=== PATIENT | female | born 1940 | race Two or more races ===

== ENCOUNTER 2016-12-04 23:11 | Inpatient (IN) | payer OTHER ==
--- NOTE | ~2016-12-04 | EKG ---
PATIENT: PEARL KEMP UNIT #: [id number] Ventricular Rate: 109 BPM Atrial Rate: 117 BPM QRS Duration: 122 ms Q-T Interval: 416 ms QTC Calculation(Bezet): 560 ms Calculated R [place]: 95 degrees Calculated T [place]: -29 degrees Diagnosis Line: Atrial fibrillation with rapid ventricular Diagnosis Line: response Diagnosis Line: Right bundle branch block Diagnosis Line: T wave abnormality, consider inferolateral Diagnosis Line: ischemia or digitalis effect Diagnosis Line: Abnormal ECG Diagnosis Line: When compared with ECG of 06-DEC-2016 08:56, Diagnosis Line: (unconfirmed) Diagnosis Line: ST more depressed Anterior leads Diagnosis Line: Confirmed by ERNESTINA DE LA CRUZ MD ([id number]) on 12/07/2016 Diagnosis Line: 10:19:03 PM INTERPRETING MD: DOROTHY TUTTLE
--- NOTE | ~2016-12-04 | CR72 ---
[facility] A Service of [facility] RADIOLOGY TEXT RESULTS PATIENT: PEARL KEMP LOCATION: [address] : 38 UNIT #: [id number] AGE: [address]: Evelio Agosto MD SEX: F ORDER DR: [id number] [id number] [place], [place] [address] [id number] I MR#: [id number] Acc #: [id number] NAME: PEARL KEMP : 1940 SEX: F STUDY DATE/TIME: 12/06/2016 7:16 UNIT: [facility] ROOM: [facility] STUDY DESCRIPTION: CR Chest Single View Portable Attending Physician: Azul Fontaine M.D. Ordering Physician: Azul Fontaine M.D. Primary Care Physician: Primary Care Physician No MEDICAL IMAGING REPORT This report is preliminary unless electronic signature is present EXAM Portable chest INDICATIONS Respiratory distress. PROCEDURE Frontal view of the chest COMPARISON 12/05/2016 FINDINGS Improving aeration in the left upper lung zone. ET tube extends just into the left main bronchus. No visible pneumothorax. IMPRESSION 1. ET tube extends just into the left main bronchus. Suggest repositioning. 2. Improving opacity in the left upper lung zone. Persistent opacity in the wmt-rf-lllol left lung. Dictated by... Bassam Chacon M.D. THIS IS AN ELECTRONICALLY VERIFIED REPORT Bassam Chacon M.D. at 12/07/2016 9:42 AM TAJ/jordon TD: 12/06/2016 08:31 JOB #: [id number] MEDICAL IMAGING REPORT [facility] A Service [facility] RADIOLOGY TEXT RESULTS PATIENT: PEARL KEMP LOCATION: [address] : 38 UNIT #: [id number] AGE: [address]: Evelio Agosto MD SEX: F ORDER DR: Page 1 of 1 COPY
--- NOTE | ~2016-12-04 | CR72 ---
[facility] A Service of [facility] RADIOLOGY TEXT RESULTS PATIENT: PEARL KEMP LOCATION: [address] [address] : 38 UNIT #: [id number] AGE: [address]: Azul Fontaine MD SEX: F ORDER DR: [id number] [facility] [address] [place], [place] [address] [id number] I MR#: [id number] Acc #: [id number] NAME: PEARL KEMP : 1940 SEX: F STUDY DATE/TIME: 12/06/2016 8:34 UNIT: [facility] ROOM: [facility] STUDY DESCRIPTION: CR Chest Single View Portable Attending Physician: Azul Fontaine M.D. Ordering Physician: Azul Fontaine M.D. Primary Care Physician: Primary Care Physician No MEDICAL IMAGING REPORT This report is preliminary unless electronic signature is present EXAM Portable chest INDICATIONS Endotracheal tube position. COMPARISON Compared with earlier today. FINDINGS The ET tube has been slightly retracted. The tip is at the giana but oriented toward the left mainstem bronchus. Suggest further retraction about 3 cm. The exam is otherwise unchanged. IMPRESSION Endotracheal tube tip is still low and would suggest retraction about 3 cm. Dictated by... Yury Lema M.D. THIS IS AN ELECTRONICALLY VERIFIED REPORT Yury Lema M.D. at 12/06/2016 9:17 AM LUDY/jordon TD: 12/06/2016 09:05 JOB #: [id number] MEDICAL IMAGING REPORT Page 1 of 1 COPY
--- NOTE | ~2016-12-04 | CO ---
Unit #: [id number] #: [id number] Patient: PEARL KEMP [id number] [address] [address] [id number] I MR#: [id number] NAME: PEARL KEMP ROOM: [facility] Age: 76 Sex: F Admission Date: 12/05/2016 : 1940 Attending Physician: Azul Fontaine M.D. Primary Care Physician: No Primary Care Physician CONSULTATION REPORT REASON FOR CONSULTATION Respiratory failure. CHIEF COMPLAINT Shortness of breath. HISTORY OF PRESENT ILLNESS This 76-year-old female presented with the complaint of shortness of breath. The patient has a past medical history of COPD on home oxygen, hypertension, nonischemic cardiomyopathy, blind in right eye, lung nodule, amyloidosis, gout, history of emphysema, AFib. I am seeing the patient at beside, currently on BiPAP, not in any acute distress but oxygen saturation is low. The patient denies chest pain and also has been complaining of some hemoptysis. SOCIAL HISTORY The patient smoked one pack of cigarettes until 2010. No alcohol. FAMILY HISTORY None. ALLERGIES No known drug allergies. MEDICATION 1. Potassium. 2. Zyloprim. 3. Diltiazem. 4. Aspirin. 5. Eliquis. 6. Metoprolol. 7. Bumex. 8. Lipitor. 9. ProAir. 10. Atropine. 11. Eye drops. PHYSICAL EXAMINATION VITAL SIGNS: Temperature 90. Pulse 87. Respiration 12. Blood pressure 98/34. NEUROLOGIC: She is awake, alert, oriented. No neuro deficit. HEENT: PERRLA. NECK: Supple. CHEST: Bilateral air entry. Bilateral mild rhonchi. Unit #: [id number] #: [id number] Patient: PEARL KEMP GASTROINTESTINAL: Nontender. Soft. Bowel sounds positive. EXTREMITIES: No edema. DIAGNOSTIC STUDIES Labs and imaging have been reviewed. ASSESSMENT AND PLAN Acute hypoxic respiratory failure, acute exacerbation of CHF, acute exacerbation of COPD, acute bronchitis, pneumonia, likely aspiration, amyloidosis, hemoptysis, chronic anticoagulation. The plan is to continue the patient on BiPAP support, IV antibiotic, IV steroid, bronchodilator, GI and DVT prophylaxis, check procalcitonin level, noncontrast CT of the chest. Please see orders for detailed plan. Thank you very much for this consultation. The patient may need intubation. I discussed with the family at the bedside. Dictated by... Malcom Delgado TD: 12/05/2016 15:13 JOB #: [id number] CONSULTATION REPORT Page 1 of 1 X Eloina Kaye MD X CONSULTATION REPORT
--- NOTE | ~2016-12-04 | DS ---
Unit #: [id number] #: [id number] Patient: PEARL KEMP [id number] [address] [address] [id number] I MR#: [id number] NAME: PEARL KEMP ROOM: [facility] Age: 76 Sex: F Admission Date: 12/05/2016 : 1940 Discharge Date: 12/10/2016 Attending Physician: Evelio Agosto M.D. Primary Care Physician: No Primary Care Physician DISCHARGE SUMMARY DATE/TIME OF December 10, 2016 at [address] Aponte. PROCEDURES DONE Bronchoscopy. ADMITTING DIAGNOSIS Shortness of breath. FURTHER DIAGNOSES 1. Acute hypoxic respiratory failure requiring intubation. 2. Hemoptysis. 3. Congestive heart failure, acute on chronic systolic. 4. Permanent atrial fibrillation. 5. Pulmonary amyloidosis. HISTORY OF PRESENT ILLNESS Patient is a 76-year-old Yakut-speaking lady with multiple medical problems including history of diastolic heart failure, COPD, hypertension, nonischemic cardiomyopathy, pulmonary amyloidosis, gout, empyema, A fib on anticoagulation. Presented to the emergency room on the with the chief complaint of cough and shortness of breath. She was also complaining of throwing up blood. Patient was intubated. She was admitted in the ICU. She was seen by pulmonary and cardiology services. She did have sputum culture and bronchoscopy done, and she had a large mucus plug, which was removed. The sputum cultures came back positive for ESBL, and she is on antimicrobials. On the she started to spike fevers, high up to 105, 106. Dr. Aponte discussed with the family, explained to them poor outcome. I also spoke with the family at length. The patient's grandson, who is the power of collector of internal revenue, requested to withdraw the care, and he wanted to keep her comfort care. Around 1345 hours on December 10, 2016, unfortunately, she . Dictated by... Evelio Agosto M.D. PS/kenny Unit #: [id number] #: [id number] Patient: PEARL KEMP TD: 12/11/2016 14:26 JOB #: [id number] DISCHARGE SUMMARY Page 1 of 1 X X DISCHARGE SUMMARY
--- NOTE | ~2016-12-04 | CO ---
Unit #: [id number] #: [id number] Patient: PEARL KEMP [id number] [address] [facility] [place], [place] [address] [id number] I MR#: [id number] NAME: PEARL KEMP ROOM: [facility] Age: 76 Sex: F Admission Date: 12/05/2016 : 1940 Attending Physician: Evelio Agosto M.D. Primary Care Physician: No Primary Care Physician CONSULTATION REPORT INTRODUCTION This patient is a 76-year-old Swazi female followed by Dr. Jefferson in our office. She was admitted by [facility]. [facility] consulted Dr. Kaye. On admission he noticed that we had seen the patient in the hospital before and that she is followed by Dr. Jefferson in our office and he asked us to assume care. She was admitted with increased shortness of breath. She also had some hemoptysis. She apparently went to see her primary flight communications officer and was told to continue Eliquis. Shortness of breath worsened and she apparently presented to the emergency room here. Her chest x-ray showed increased markings in the lungs with silhouetting of the left hemidiaphragm. Multiple pulmonary nodules were noted. She was noted to be in respiratory failure and was placed on BiPAP. Arterial blood gasses revealed 7.40, pCO2 of 48, paO2 of 59 on 80% and BiPAP of 12.6. She worsened and became more hypoxemic requiring intubation on the . At that time chest x-ray showed complete opacification of left hemithorax. Follow-up x-ray yesterday showed some better aeration of the left upper lobe. A bronchoscopy was scheduled by Dr. Kaye and now we are asked to see the patient. Chest x-ray today reveals opacification of the lower half to third of the left hemithorax. The left upper lobe appears patent. She still has multiple pulmonary nodules. Arterial blood gasses revealed pH of 7.45, pCO2 of 48, PaO2 of 188 on 100%, rate of 24, tidal volume 400, PEEP of 10. Chemistries are fairly unremarkable. Procalcitonin was elevated at 2.92. Lactate was 1 on the , maximum of 1.6. She initially had been on Eliquis but that was discontinued. She has had no further hemoptysis. Her white blood cell count was 19,700 on admission, hematocrit was 37.2 and platelet count was normal. Influenza A and B are negative. Currently blood and sputum cultures are negative. She has been made DNR status. She remains on ventilator. PAST MEDICAL HISTORY Her past medical history is significant for COPD, chronic respiratory failure, some diastolic cardiac dysfunction, amyloidosis, hypertension, right bundle branch block, amyloidosis with pulmonary nodules, history of right eye blindness. PAST SURGICAL HISTORY Hysterectomy. SOCIAL HISTORY Reformed smoker, lives with daughter and grandson, quit smoking in 2010. FAMILY HISTORY Unit #: [id number] #: [id number] Patient: PEARL KEMP Negative for coronary artery disease. ALLERGIES None known. CURRENT MEDICATIONS Include digoxin, amiodarone, Bumex, Zyloprim, Cardizem CD, Lopressor, Atropisol, Pred Forte eye drops, some other eye drops, Timolol eye drops, Benadryl, Solu-Medrol, DuoNeb, hypertonic saline, Zosyn, fentanyl, norepinephrine. REVIEW OF SYSTEMS Not possible. PHYSICAL EXAMINATION GENERAL: Swazi female intubated orally #8 ET tube, sedated, on vent. VITAL SIGNS: Blood pressure is 113/57. Pulse 111. Respiratory rate 25. Temperature 101.8. HEENT: Normocephalic and atraumatic. Pupils equal, round and reactive. Sclerae anicteric. Nasal passages patent. Orally intubated. NECK: Supple. Trachea midline. No cervical or supraclavicular lymphadenopathy. LUNGS: Scattered rhonchi. CARDIAC: Irregularly irregular rhythm. ABDOMEN: Nontender, bowel sounds present, no hepatosplenomegaly. EXTREMITIES: Without clubbing, cyanosis or edema. NEUROLOGIC: Sedated, on vent. DIAGNOSTIC STUDIES LABORATORY: Studies personally reviewed as noted. IMPRESSION 1. Pneumonia with septic shock. 2. Mucous plug, better but still possibly mucous plug left lower lobe. 3. Acute and chronic hypoxemic respiratory failure. 4. Pulmonary amyloidosis. 5. Atrial fibrillation, rapid ventricular response. 6. Hemoptysis, probably secondary to pneumonia and Eliquis, currently resolved off Eliquis. 7. Fever. 8. DNR status. PLAN Will add vancomycin to Zosyn to cover better for Gram-positive organisms. Will continue to treat COPD with inhaled bronchodilators, low-dose steroids and provide pulmonary toilet and hygiene. Will proceed with bronchoscopy, have talked with the son on phone and informed consent has been given. Will make further recommendations pending this. Dictated by... Malcom Johnson/kassidy Unit #: [id number] #: [id number] Patient: PEARL KEMP TD: 12/07/2016 22:34 JOB #: [id number] CONSULTATION REPORT Page 1 of 1 X Basim Aponte MD X CONSULTATION REPORT
--- NOTE | ~2016-12-04 | CR72 ---
[facility] A Service of [facility] RADIOLOGY TEXT RESULTS PATIENT: PEARL KEMP LOCATION: [address] : 38 UNIT #: [id number] AGE: [address]: Evelio Agosto MD SEX: F ORDER DR: [id number] [facility] [address] [facility]. [place], [place] [address] [id number] I MR#: [id number] Acc #: [id number] NAME: PEARL KEMP : 1940 SEX: F STUDY DATE/TIME: 12/09/2016 2:50 UNIT: [facility] ROOM: [facility] STUDY DESCRIPTION: CR Chest Single View Portable Attending Physician: Evelio Agosto M.D. Ordering Physician: Basim Aponte M.D. Primary Care Physician: Primary Care Physician No MEDICAL IMAGING REPORT This report is preliminary unless electronic signature is present EXAM AP portable chest 12/09/2016. HISTORY Respiratory failure. Follow up cardiopulmonary status. TECHNIQUE AP portable chest x-ray. FINDINGS The examination shows no change since yesterday. Marked cardiomegaly with probable mild vascular congestion and infiltrate or atelectasis in the left lung, base behind the heart. Low lung volumes. Endotracheal tube, right IJ central line and Dobbhoff feeding tube remain in good position. IMPRESSION Stable portable chest radiograph, unchanged since yesterday. Support equipment in good position. Dictated by... Apolinar Vazquez M.D. THIS IS AN ELECTRONICALLY VERIFIED REPORT Apolinar Vazquez M.D. at 12/09/2016 5:59 AM SAVANNAW/benito TD: 12/09/2016 03:22 JOB #: [id number] MEDICAL IMAGING REPORT Page 1 of 1 COPY
--- NOTE | ~2016-12-04 | CO ---
Unit #: [id number] #: [id number] Patient: PEARL KEMP [id number] [facility]. [place], [place] [address] [id number] I MR#: [id number] NAME: PEARL KEMP ROOM: [facility] Age: 76 Sex: F Admission Date: 12/05/2016 : 1940 Attending Physician: Azul Fontaine M.D. Consultation Date: 12/05/2016 CONSULTATION REPORT REASON FOR CONSULTATION Congestive heart failure. HISTORY OF PRESENT ILLNESS This is a 76-year-old Emirati female, who is known to the cardiovascular associates and supervisor/port director at [employer], who has a history of diastolic heart failure and permanent atrial fibrillation where she is on anticoagulation with Eliquis. She had a cardiac catheterization in 2010 that showed angiographically normal coronaries. The patient presents to the emergency room with a complaint of shortness of breath and hemoptysis. She developed hemoptysis a few days ago and went to see her primary supervisor/port director 2 days ago. Her supervisor/port director told her to continue Eliquis. Yesterday, she developed shortness of breath where she could not breathe. For this reason, she came to the emergency room for evaluation. She does have a history of pulmonary amyloidosis and COPD, where she is on home oxygen. She is also noted to have pulmonary nodules. She was placed on BiPAP and is currently in the intensive care unit. There was elevation of BNP of 333. Chest x-ray showed mild vascular congestion. There is also noted multiple pulmonary nodules and masses where malignancy is questioned. At the time in the examination, the patient had a large amount of bright red blood with clots. She is in atrial fibrillation, but rate is controlled. She reports no leg edema. Denies paroxysmal nocturnal dyspnea or orthopnea. PAST MEDICAL HISTORY 1. 2D echocardiogram, 09/12/2014 shows ejection fraction of greater than 55% with impaired left ventricle relaxation. There is moderate mitral regurgitation and moderate tricuspid regurgitation and mild aortic regurgitation. 2. Cardiac catheterization in [address] Acuña at [facility] showed normal coronaries. Pulmonary artery pressure is 27/8 with mean of 16. Sczc-lr-fxtoqoay aortic regurgitation. 3. Permanent atrial fibrillation, on Eliquis. 4. Hypertension. 5. Diastolic heart failure. 6. Right bundle-branch block. 7. COPD, on home oxygen. 8. Pulmonary nodules. 9. Pulmonary amyloidosis. 10. Right eye blindness. 11. Former smoker. Unit #: [id number] #: [id number] Patient: PEARL KEMP PAST SURGICAL HISTORY Hysterectomy. SOCIAL HISTORY The patient lives with her daughter and grandson. She quit smoking in 2010. She originates from [place]. There is no illicit drug or alcohol use. FAMILY HISTORY Negative for coronary artery disease. ALLERGIES No known drug allergies. HOME MEDICATIONS Potassium chloride 20 mEq daily, allopurinol 100 mg daily, diltiazem 240 mg daily, aspirin 81 mg daily, Eliquis 2.5 mg b.i.d., metoprolol tartrate 25 mg t.i.d., Bumex 2 mg b.i.d., Lipitor no dose available, ProAir HFA 1 inhalation q.6 hours p.r.n., atropine 0.1% eyedrop right eye daily, Pred Forte 1 drop right eye daily, Benadryl 12.5 mg q.i.d., brimonidine tartrate 0.2% 1 drop right eye daily, Timoptic 0.5% 1 drop right eye daily. REVIEW OF SYSTEMS 10-point review of system is negative except details stated in HPI. PHYSICAL EXAMINATION VITAL SIGNS: Blood pressure 115/57, heart rate 87, temperature 97.8. BMI is 27. GENERAL: This is a 76-year-old, well-developed, female, who is in no acute respiratory distress. NEUROLOGIC: She is awake, alert, and oriented. There are no focal weaknesses. NECK: Trachea is midline. No thyromegaly or lymphadenopathy. No jugular venous distention. HEART: S1, S2. Heart sounds are normal with soft systolic murmur heard best on the right sternal border. No rubs or clicks. Irregularly irregular rhythm. LUNGS: With diminished breath sounds in both lungs without rales, rhonchi, or wheezing. ABDOMEN: Soft and nontender with bowel sounds are present. EXTREMITIES: With trace lower extremity edema. DIAGNOSTIC STUDIES LABORATORY RESULTS: Hemoglobin 11.4, hematocrit 36.6, platelet count 199, white count 14.9. Sodium 137, potassium 4.3, BUN 24, creatinine 0.9, glucose 126. BNP 335. IMAGING STUDIES: Chest x-ray shows marked cardiomegaly. There is mild vascular congestion. Multiple pulmonary nodules and masses, questionable malignancy. CARDIOVASCULAR STUDIES: EKG shows atrial fibrillation with a rate of 97 beats per minute with right bundle-branch block. IMPRESSION 1. Acute on chronic hypercapnic/hypoxic respiratory failure. 2. Pulmonary amyloidosis. 3. Chronic obstructive pulmonary disease. Unit #: [id number] #: [id number] Patient: EFRAIN BLAIR,PEARL MCMAHON 4. Pulmonary nodules. 5. Mild acute on chronic diastolic heart failure. 6. Hemoptysis. 7. Permanent atrial fibrillation. 8. Chronic right bundle-branch block. 9. Normal coronaries per cardiac catheterization in 2010. PLAN 1. Cardiology was consulted for congestive heart failure. She is currently on IV Bumex. BNP mildly elevated. 2. Echocardiogram is pending for left ventricular systolic function. Because of hemoptysis, we will discontinue anticoagulation. 3. We will follow the patient with you. Thank you for allowing us to assist in this patient's care. Dictated by... Eugene Cristina A.P.R.N. for [employer]com Avelar/jossie TD: 12/06/2016 03:37 JOB #: [id number] CONSULTATION REPORT Page 1 of 1 X Eugene Cristina APRN X CONSULTATION REPORT
--- NOTE | ~2016-12-04 | CR72 ---
[facility] A Service of [facility] & [facility] RADIOLOGY TEXT RESULTS PATIENT: PEARL KEMP LOCATION: [address] : 38 UNIT #: [id number] AGE: [address]: Evelio Agosto MD SEX: F ORDER DR: [id number] [facility] [address] [place], [place] [address] [id number] I MR#: [id number] Acc #: [id number] NAME: PEARL KEMP : 1940 SEX: F STUDY DATE/TIME: 12/10/2016 5:55 UNIT: [facility] ROOM: [facility] STUDY DESCRIPTION: CR Chest Single View Portable Attending Physician: Evelio Agosto M.D. Ordering Physician: Basim Aponte M.D. Primary Care Physician: Primary Care Physician No MEDICAL IMAGING REPORT This report is preliminary unless electronic signature is present EXAM Portable chest 1 view 12/10/2016 HISTORY Respiratory failure for 5 days. FINDINGS Moderate cardiomegaly is redemonstrated. ET tube remains tip about 1.5 cm above the giana. There is a hiatal hernia, as well as bibasilar opacity likely due to effusions and/or atelectasis, less likely infiltrate. No pneumothorax. No new infiltrate. No convincing interval change since 12/09. Right IJ central line remains in place tip right atrium. Dictated by... Solo Plaza M.D. THIS IS AN ELECTRONICALLY VERIFIED REPORT Solo Plaza M.D. at 12/10/2016 3:49 PM TEV/siomara TD: 12/10/2016 08:08 JOB #: [id number] MEDICAL IMAGING REPORT Page 1 of 1 COPY
--- NOTE | ~2016-12-04 | CT57 ---
[facility] of [facility] RADIOLOGY TEXT RESULTS PATIENT: PEARL KEMP LOCATION: [address]- : 38 UNIT #: [id number] AGE: [address]: Azul Fontaine MD SEX: F ORDER DR: [id number] [facility] [address] [facility]. [place], [place] [address] [id number] I MR#: [id number] Acc #: [id number] NAME: PEARL KEMP : 1940 SEX: F STUDY DATE/TIME: 12/05/2016 15:17 UNIT: [facility] ROOM: [facility] STUDY DESCRIPTION: CT Chest Wo Cont Attending Physician: Azul Fontaine M.D. Ordering Physician: Azul Fontaine M.D. Primary Care Physician: Rachele Primary Care Physician MEDICAL IMAGING REPORT This report is preliminary unless electronic signature is present EXAM CT chest without contrast. HISTORY CHF, acute exacerbation, shortness of air starting yesterday. COMPARISON Portable chest, 12/04/2016. TECHNIQUE NOTE: This CT exam was performed with one or more of the following radiation dose reduction techniques: automatic exposure control, adjustment of mA and/or kV according to patient size, and iterative reconstruction. FINDINGS Axial images form through the chest without contrast. Multiplanar reconstructed images reviewed at a workstation. Examination demonstrates complete opacity of the left thorax with left-sided volume loss and shift of mediastinal structures to the left of midline. Filling defects noted within the left main stem bronchi suggest possible mucous plugging. This represents a significant change from the patient's chest radiograph of 12/04/2016. The right lung demonstrates multiple nodules, compatible with metastatic disease. There is marked cardiomegaly. Extensive aortic atherosclerotic changes. Extensive coronary artery calcifications. No pericardial effusion. Upper abdomen unremarkable except for a suspected gallstone. Mild atrophy of the kidneys bilaterally with extensive arterial vascular calcifications. Osseous structures demonstrate osteopenia with multiple thoracic compression fracture deformities, age undetermined. No obvious metastatic lesion to the bone. Thoracic inlet and extrathoracic soft tissues appear normal. Moderately advanced arthritic changes seen in the left shoulder. [facility] A Service of [facility] RADIOLOGY TEXT RESULTS PATIENT: PEARL KEMP LOCATION: [facility]- : 38 UNIT #: [id number] AGE: [address]: Azul Fontaine MD SEX: F ORDER DR: IMPRESSION 1. Apparent complete collapse of the left lung most likely related to extensive mucous plugging, particularly within the left main stem bronchus and left lower lobe bronchi. Cystic change within the remaining air within the anterior aspect of the lung in the region of the lingular segment could represent areas of bronchiectasis. 2. Multiple right pulmonary nodules largest measuring about 2.1 cm and this most likely represents metastatic disease. 3. Marked cardiomegaly with four-chamber enlargement with extensive aortic and coronary artery atherosclerotic disease. ADDENDUM The findings of this study were called to the nursing staff and talked to the nurse taking care of Ms. Honorio Segovia. 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 Also demonstrated is probably a small amount of left-sided pleural fluid but this primarily represents lobar collapse of the left lung. Dictated by... Brigida Lema M.D. THIS IS AN ELECTRONICALLY VERIFIED REPORT Brigida Lema M.D. at 12/05/2016 8:37 PM Valente TD: 12/05/2016 18:46 JOB #: [id number] MEDICAL IMAGING REPORT Page 1 of 1 COPY
--- NOTE | ~2016-12-04 | OR ---
Unit #: [id number] #: [id number] Patient: PEARL KEMP [id number] [address] [place], [place] [address] [id number] I MR#: [id number] NAME: PEARL KEMP ROOM: [facility] Date of Procedure: 12/07/2016 Admission Date: 12/05/2016 Surgeon: Basim Aponte M.D. : 1940 Attending Physician: Evelio Agosto M.D. OPERATIVE REPORT PROCEDURE PERFORMED Fiberoptic bronchoscopy. INDICATIONS FOR PROCEDURE A 76-year-old Sudeep female with previous opacification of left hemithorax, now with opacification lower half of left hemithorax with hemoptysis and pneumonia. PREOPERATIVE DIAGNOSIS Mucus plug. POSTOPERATIVE DIAGNOSIS Large bloody mucus plug occluding left lower lobe and some of the left upper lobe. DESCRIPTION OF PROCEDURE Procedure was done while the patient was on ventilator and sedated. O2 saturations remained greater than 88%. Fiberoptic bronchoscope was introduced through the endotracheal tube via an adaptor. The bronchoscope was passed down into the endotracheal tube, which lay about a centimeter above the main giana. The bronchoscope was advanced down the right mainstem into the bronchus intermedius, right middle lobe, lower lobe, and upper lobe. All orifices were widely patent without endobronchial lesions. The bronchoscope was withdrawn to the main giana. It was advanced down the left mainstem. The distal left mainstem had a large blood clot present. That clot was lavaged extensively with eventual removal. The bronchoscope had to be changed to a larger bore bronchoscope. It was suctioned free. The left lower lobe was lavaged free of clots. There were no endobronchial lesions identified. There was no active bleeding identified. The left upper lobe had blood clots in a particularly lingula, which was lavaged free. There was no endobronchial lesions noted. The bronchoscope was removed. The patient tolerated the procedure well. Samples were sent for cytologic and culture. Dictated by... Malcom Johnson/jossie TD: 12/08/2016 00:45 Unit #: [id number] #: [id number] Patient: PEARL KEMP JOB #: [id number] OPERATIVE REPORT Page 1 of 1 X Basim Aponte MD PROCEDURE OPERATIVE NOTE
--- NOTE | ~2016-12-04 | EKG ---
PATIENT: PEARL KEMP UNIT #: [id number] Ventricular Rate: 97 BPM Atrial Rate: 71 BPM QRS Duration: 134 ms Q-T Interval: 414 ms QTC Calculation(Bezet): 525 ms Calculated R Shelton: 77 degrees Calculated T Shelton: -26 degrees Diagnosis Line: Atrial fibrillation Diagnosis Line: Right bundle branch block Diagnosis Line: Septal infarct (cited on or before 22-MAY-2013) Diagnosis Line: T wave abnormality, consider inferior ischemia Diagnosis Line: Abnormal ECG Diagnosis Line: When compared with ECG of 03-NOV-2014 20:11, Diagnosis Line: Vent. rate has decreased BY 51 BPM Diagnosis Line: Right bundle branch block has replaced Incomplete Diagnosis Line: right bundle branch block Diagnosis Line: Confirmed by ERNESTINA DE LA CRUZ MD ([id number]) on 12/05/2016 Diagnosis Line: 6:32:10 PM INTERPRETING MD: DOROTHY TUTTLE
--- NOTE | ~2016-12-04 | CR72 ---
[facility] A Service of [facility] RADIOLOGY TEXT RESULTS PATIENT: PEARL KEMP LOCATION: [address] : 38 UNIT #: [id number] AGE: [address]: Azul Fontaine MD SEX: F ORDER DR: [id number] [place] [place], [place] [address] [id number] I MR#: [id number] Acc #: [id number] NAME: PEARL KEMP : 1940 SEX: F STUDY DATE/TIME: 12/07/2016 3:04 UNIT: [facility] ROOM: [facility] STUDY DESCRIPTION: CR Chest Single View Portable Attending Physician: Azul Fontaine M.D. Ordering Physician: Azul Fontaine M.D. Primary Care Physician: Primary Care Physician No MEDICAL IMAGING REPORT This report is preliminary unless electronic signature is present EXAM AP portable chest, 12/07/2016 HISTORY Respiratory failure. Patient on ventilator. Followup cardiopulmonary status. TECHNIQUE AP portable chest x-ray. FINDINGS Endotracheal tube tip in the low thoracic trachea about 2 cm above the giana. Right IJ central line in good position. No significant change since yesterday. Marked cardiomegaly. Mild diffuse interstitial opacity with more dense infiltrate and/or atelectasis in the left lung base. Low lung volumes. No visible pneumothorax or pleural effusion. IMPRESSION Stable portable chest radiograph, unchanged since yesterday. Dictated by... Apolinar Vazquez M.D. THIS IS AN ELECTRONICALLY VERIFIED REPORT Apolinar Vazquez M.D. at 12/07/2016 5:58 AM ODETTE/madalyn TD: 12/07/2016 04:47 JOB #: [id number] [facility] A Service of [facility] RADIOLOGY TEXT RESULTS PATIENT: PEARL KEMP LOCATION: [address] : 38 UNIT #: [id number] AGE: [address]: Azul Fontaine MD SEX: F ORDER DR: MEDICAL IMAGING REPORT Page 1 of 1 COPY
--- NOTE | ~2016-12-04 | CR72 ---
[facility] A Service of [facility] & [facility] RADIOLOGY TEXT RESULTS PATIENT: PEARL KEMP LOCATION: [address]- : 38 UNIT #: [id number] AGE: [address]: Evelio Agosto MD SEX: F ORDER DR: [id number] [facility] [address] [facility]. [place], [place] [address] [id number] I MR#: [id number] Acc #: [id number] NAME: PEARL KEMP : 1940 SEX: F STUDY DATE/TIME: 12/08/2016 11:33 UNIT: [facility] ROOM: [facility] STUDY DESCRIPTION: CR Chest Single View Portable Attending Physician: Evelio Agosto M.D. Ordering Physician: Basim Aponte M.D. Primary Care Physician: Primary Care Physician No MEDICAL IMAGING REPORT This report is preliminary unless electronic signature is present EXAM Portable chest INDICATION Respiratory failure. Shortness of air for 3 days. Followup endotracheal tube. FINDINGS Today's portable view of the chest is compared with yesterday's study. The endotracheal tube has its tip 2.0 cm above the giana. Dobbhoff tube has its tip in stomach. There are low lung volumes with left greater than right basilar atelectasis. There has been no change. Dictated by... Rubin Owen M.D. THIS IS AN ELECTRONICALLY VERIFIED REPORT Rubin Owen M.D. at 12/08/2016 1:37 PM Lalita TD: 12/08/2016 13:21 JOB #: [id number] MEDICAL IMAGING REPORT Page 1 of 1 COPY
--- NOTE | ~2016-12-04 | CR7 ---
[facility] A Service of [facility] & [facility] RADIOLOGY TEXT RESULTS PATIENT: PEARL KEMP LOCATION: [address]22 : 38 UNIT #: [id number] AGE: [address]: Evelio Agosto MD SEX: F ORDER DR: [id number] [facility] [address] [facility]. [place], [place] [address] [id number] I MR#: [id number] Acc #: [id number] NAME: PEARL KEMP : 1940 SEX: F STUDY DATE/TIME: 12/07/2016 12:27 UNIT: [facility] ROOM: [facility] STUDY DESCRIPTION: CR Abdomen Single AP View Attending Physician: Evelio Agosto M.D. Ordering Physician: Evelio Agosto M.D. Primary Care Physician: No Primary Care Physician MEDICAL IMAGING REPORT This report is preliminary unless electronic signature is present EXAM Portable abdomen. HISTORY On vent; Dobbhoff tube placement. FINDINGS An AP view of the abdomen is obtained. Dobbhoff tube is coiled within the stomach. There is volume loss and dense consolidation at the left base. CONCLUSION Dobbhoff tube is coiled within the stomach. Dictated by... Shola Diez M.D. THIS IS AN ELECTRONICALLY VERIFIED REPORT Shola Diez M.D. at 12/07/2016 4:52 PM Carolann TD: 12/07/2016 14:18 JOB #: [id number] MEDICAL IMAGING REPORT Page 1 of 1 COPY
--- NOTE | ~2016-12-04 | CR72 ---
[facility] A Service of [facility] & [facility] RADIOLOGY TEXT RESULTS PATIENT: PEARL KEMP LOCATION: [address]22 : 38 UNIT #: [id number] AGE: [address]: Evelio Agosto MD SEX: F ORDER DR: [id number] [facility] [address] [facility]. [place], [place] [address] [id number] I MR#: [id number] Acc #: [id number] NAME: PEARL KEMP : 1940 SEX: F STUDY DATE/TIME: 12/07/2016 12:28 UNIT: [facility] ROOM: [facility] STUDY DESCRIPTION: CR Chest Single View Portable Attending Physician: Evelio Agosto M.D. Ordering Physician: Jorge Aponte M.D. Primary Care Physician: No Primary Care Physician MEDICAL IMAGING REPORT This report is preliminary unless electronic signature is present EXAM Chest 12/07/2016 12:28 hours HISTORY A 76-year-old woman on ventilator post bronchoscopy with shortness of air today. Dobbhoff tube placement, endotracheal tube placement. COMPARISON 12/07/2016 at 03:04 hours FINDINGS Portable upright chest demonstrates endotracheal tube with tip 1.4 cm above the giana. There is a right IJ catheter with tip extending into the right atrium. There is a flexible feeding tube with tip directed cephalad below the left hemidiaphragm in the fundus of the stomach. There is airspace density left midlung left lung base most consistent with pneumonia. Probable associated small left effusion. There is no pneumothorax. There is mild vascular crowding at the right lung base. IMPRESSION 1. The Dobbhoff tube terminates in the left upper quadrant the abdomen with tip directed cephalad below the left hemidiaphragm in the fundus of the stomach. 2. Endotracheal tube tip is 1.4 cm above the giana. 3. Dense airspace change in the left midlung left lung base concerning for pneumonia. There is an associated small left pleural effusion. 4. There is mild vascular crowding at the right lung base. No definite acute pulmonary density on the right. STAT * RESULT Dictated by... [facility] A Service of [facility] & [facility] RADIOLOGY TEXT RESULTS PATIENT: PEARL KEMP LOCATION: [place] [address]22 : 38 UNIT #: [id number] AGE: [address]: Evelio Agosto MD SEX: F ORDER DR: Rosalina Villegas M.D. THIS IS AN ELECTRONICALLY VERIFIED REPORT Rosalina Villegas M.D. at 12/07/2016 2:28 PM Yuan TD: 12/07/2016 13:11 JOB #: [id number] MEDICAL IMAGING REPORT Page 1 of 1 COPY
--- NOTE | ~2016-12-04 | CR72 ---
[facility] A Service of [facility] RADIOLOGY TEXT RESULTS PATIENT: PEARL KEMP [place]ATION: [place] : 38 UNIT #: [id number] AGE: [address]: Azul Fontaine MD SEX: F ORDER DR: [id number] [facility] [address]. [place], [place] [address] [id number] E MR#: [id number] Acc #: [id number] NAME: PEARL KEMP : 1940 SEX: F STUDY DATE/TIME: 12/04/2016 23:20 UNIT: [facility] ROOM: STUDY DESCRIPTION: CR Chest Single View Portable Attending Physician: Jalen Manzanares M.D. Ordering Physician: Jalen Manzanares M.D. Primary Care Physician: No Primary Care Physician MEDICAL IMAGING REPORT This report is preliminary unless electronic signature is present EXAM AP portable chest 12/04/2016 HISTORY 76-year-old female in the ED with shortness of air, respiratory distress. TECHNIQUE AP portable chest x-ray. FINDINGS The exam shows marked cardiomegaly with radiographic evidence of vascular congestion including pulmonary venous redistribution and probable mild diffuse interstitial pulmonary edema. There are multiple bilateral pulmonary masses and nodules. These were best demonstrated on the previous chest CT of 09/10/2014. Correlate with patient malignancy history. Low lung volumes. No visible pleural effusion. Scoliosis. IMPRESSION 1. Marked cardiomegaly and mild vascular congestion as noted. 2. Multiple bilateral pulmonary nodules and masses. Malignancy is likely. Correlate with patient history. Dictated by... Apolinar Vazquez M.D. THIS IS AN ELECTRONICALLY VERIFIED REPORT Apolinar Vazquez M.D. at 12/05/2016 5:57 AM RGW/rnr TD: 12/05/2016 00:34 [facility] A Service of [facility] RADIOLOGY TEXT RESULTS PATIENT: PEARL KEMP LOCATION: [facility]-22 : 38 UNIT #: [id number] AGE: [address]: Azul Fontaine MD SEX: F ORDER DR: JOB #: [id number] MEDICAL IMAGING REPORT Page 1 of 1 COPY
--- NOTE | ~2016-12-04 | CR72 ---
[facility] A Service of [facility] & [facility] RADIOLOGY TEXT RESULTS PATIENT: PEARL KEMP LOCATION: [address] : 38 UNIT #: [id number] AGE: [address]: Azul Fontaine MD SEX: F ORDER DR: [id number] [facility] [address] [place], [place] [address] [id number] I MR#: [id number] Acc #: [id number] NAME: PEARL KEMP : 1940 SEX: F STUDY DATE/TIME: 12/05/2016 21:00 UNIT: [facility] ROOM: [facility] STUDY DESCRIPTION: CR Chest Single View Portable Attending Physician: Azul Fontaine M.D. Ordering Physician: Eloina Kaye M.D. MEDICAL IMAGING REPORT This report is preliminary unless electronic signature is present EXAM Portable chest. HISTORY Low oxygen saturation and CHF today. FINDINGS There is complete opacification of left hemithorax corresponding to left lung atelectasis and small left pleural effusion noted on CT chest earlier today. The left hemithorax opacification has developed since the chest x-ray yesterday. There is persistent nodularity in the right lower lung also corresponding to the findings on the recent CT. Dictated by... Louie Adams M.D. THIS IS AN ELECTRONICALLY VERIFIED REPORT Louie Adams M.D. at 12/06/2016 3:25 PM AVTAR/joaquin TD: 12/05/2016 22:40 JOB #: [id number] MEDICAL IMAGING REPORT Page 1 of 1 COPY
--- NOTE | ~2016-12-04 | CR72 ---
[facility] A Service of [facility] & [facility] RADIOLOGY TEXT RESULTS PATIENT: PEARL KEMP LOCATION: [place] [address] : 38 UNIT #: [id number] AGE: [address]: Azul Fontaine MD SEX: F ORDER DR: [id number] [facility] [address] [facility]. [place], [place] [address] [id number] I MR#: [id number] Acc #: [id number] NAME: PEARL KEMP : 1940 SEX: F STUDY DATE/TIME: 12/05/2016 21:32 UNIT: [facility] ROOM: [facility] STUDY DESCRIPTION: CR Chest Single View Portable Attending Physician: Azul Fontaine M.D. Ordering Physician: Eloina Kaye M.D. MEDICAL IMAGING REPORT This report is preliminary unless electronic signature is present EXAM Portable chest HISTORY Post intubation today. FINDINGS ETT tip is at the level of the giana and should be pulled back 2-3 cm. Persistent opacification left hemithorax corresponding to left lung atelectasis and left pleural effusion noted on chest x-ray and CT earlier today. Persistent small right pleural effusion with nodularity in the right lower lung. Dictated by... Louie Adams M.D. THIS IS AN ELECTRONICALLY VERIFIED REPORT Louie Adams M.D. at 12/06/2016 3:25 PM DFL/rnr TD: 12/05/2016 23:06 JOB #: [id number] MEDICAL IMAGING REPORT Page 1 of 1 COPY
--- NOTE | ~2016-12-04 | A ---
[facility] Nutrition Therapy DATE: 12/07/16 Patient: PEARL SALOME BLAIR Physician: DALTON Address: [address] [place] [address] ROAD Room/Bed: [address], Zip: [place] [address] Admit Date: 12/05/16 Date of : 38 Height: 5 4 Weight: 170 77.5 NUTRITIONAL ASSESSMENT: REASON: Seen for enteral nutrition recommendations, intubated Admitting dx: 76 y/o female admitted with acute CHF exacerbation PMH: COPD, HTN, A-fib, gout, emphysema, cardiomyopathy Anthropometrics: Ht: 64", Wt: 77.5 kg (170 lbs), BMI: 27 (overweight) Labs: Glucose 200, GFR 53.9, lytes WNL Meds: Versed, Fentanyl, D5, Bumex, Solu-medrol, Kcl, MgSO4, Nacl, Levophed I/O & Bowel function: LBM unknown Skin Integrity: Discoloration BLE, bruises/scars noted, trace-generalized edema noted Estimated Nutrition Needs: [id number] kcals per day (20-25 kcals/kg) 62-78 g protein per day (0.8-1.0 g/kg) Fluids consistent with kcal needs or per MD Assessment: Chart reviewed, events noted. See admitting dx and PMH as stated above. Patient on Bipap over the weekend, now intubated and sedated with fentanyl/versed. CXR showed cardiomegaly and multiple lung nodules, likely malignant. ?prognosis, RN requesting EN recs. No DHT order yet, RN to obtain. Of note, the patient speaks Bruneian, she is a DNR. See recs below, will follow hospital course. Dx: Inadequate protein energy intake r/t intubation AEB NPO, need for EN. Intervention: EN recs as stated below Monitoring, Evaluation and Goals: 1. EN consistent with estimated needs. 2. Improvement in blood glucose, lytes will remain WNL. 3. Promote regular GI function. Monitor: Per protocol, criteria to determine if above goals met Recommendations: [facility] Nutrition Therapy DATE: 12/07/16 Patient: PEARL BLAIR Physician: DALTON Address: [address] [place] [address] ROAD Room/Bed: [address], Zip: [place] [address] Admit Date: 12/05/16 Date of : 38 Height: 5 4 Weight: 170 77.5 1. One DHT is placed and confirmed start enteral nutrition with Jevity 1.5 @ 20 ml/hr and increase by 10 ml q 4 hours until goal rate of 50 ml/hr is reached, to provide 1800 kcals, 77 g protein and 912 ml water. Once at goal rate add free water flushes per MD, suggest 225 ml QID. 2. If extubated advance to PO diet per [employer] recs, RD suggests [address]g [address] RD will follow hospital course Moderate-severe nutrition risk Respectfully, Barbara Goins RD, LD Food and Nutritional Services [facility] cc: client file
--- NOTE | ~2016-12-04 | HP ---
Unit #: [id number] #: [id number] Patient: PEARL KEMP [id number] [address] [address] [id number] MR#: [id number] NAME: PEARL KEMP ROOM: [facility] Age: 76 Sex: F Admission Date: 12/05/2016 : 1940 Attending Physician: Azul Fontaine M.D. Primary Care Physician: No Primary Care Physician HISTORY AND PHYSICAL CHIEF COMPLAINT Shortness of breath. HISTORY OF PRESENT ILLNESS This is a 76-year-old who is Irish speaking admitted because of shortness of breath. Most of the history is taken from financial investment manager phone by her daughter. Currently, patient is on BiPAP and not able to speak completely because of shortness of breath. According to daughter, patient has chronically shortness of breath for many years because of amyloidosis, but yesterday she started throwing up blood. Also, her shortness of breath got worse since Wednesday. No chest pain. No fever. No chills. No nausea, (1) . No abdominal pain. No diarrhea. No constipation. PAST MEDICAL HISTORY 1. History of COPD on chronic oxygen. 2. Hypertension. 3. Nonischemic cardiomyopathy, ejection fraction 40% to 45%. Patient had cardiac catheterization in 2010 and did not show any stenosis. Had moderate mitral regurgitation. 4. Blind in the right eye. 5. Lung nodules with amyloidosis, biopsied at [facility] in 2011. 6. Gout. 7. Total abdominal hysterectomy. 8. History of emphysema. 9. Atrial fibrillation on Eliquis. ALLERGIES None. CURRENT HOME MEDICATIONS 1. Potassium 20 mEq p.o. daily. 2. Zyloprim 100 mg p.o. daily. 3. Diltiazem 24-hour CD 240 mg p.o. daily. 4. Aspirin 81 daily. 5. Eliquis 2.5 p.o. b.i.d. 6. Metoprolol 25 p.o. 3 times daily. 7. Bumex 2 mg p.o. b.i.d. 8. Lipitor, currently dose unknown. 9. ProAir 1 inhalation every 6 hours. 10. Atropine eyedrops once daily. 11. Pred Forte eyedrops daily. 12. Diphenhydramine 12.5 mg q.4 daily. 13. Brimonidine eyedrops daily. 14. Timoptic eyedrops daily. Unit #: [id number] #: [id number] Patient: PEARL KEMP FAMILY HISTORY Negative for lung disease. SOCIAL HISTORY She is originally from [place], living with family, daughter. She smoked 1 pack of cigarettes per day until 2010. No alcohol. REVIEW OF SYSTEMS No headache. No visual changes. No weakness, numbness, or tingling. According to the daughter, no other issues. Reviewed 12-point review of systems with her daughter, which is negative except for in HPI. PHYSICAL EXAMINATION VITAL SIGNS: Temperature 97.8, pulse 94, respirations 21, and blood pressure 98/34. GENERAL: 76-year-old lying on bed with BiPAP and needing 100% oxygen. Alert and oriented to self. Has tachypnea present. HEENT: Pupils equal and reactive to light and accommodation. Dry mucosa present. LUNGS: Decreased breath sounds severely, especially in the left lung. Occasional rhonchi and crackles present. ABDOMEN: Soft and nontender. Bowel sounds are present. HEART: S1 and S2 heard. Tachycardia present. EXTREMITIES: Trace pedal edema present. NEUROLOGICAL: Nonfocal. Moving all extremities, but cannot assess mental status changes because patient is on BiPAP and cannot take it off because of severe hypoxia. DIAGNOSTIC STUDIES LABORATORY: BNP 335. Sodium 147, potassium 4.3, and creatinine 0.9. WBC 14.9, hemoglobin 11.4, and platelets 199. INR 1.1. Lactic acid 1.6. ABG: pH 7.40, carbon dioxide 48, and oxygen 59. IMAGING: Chest x-ray shows marked cardiomegaly with mild vascular congestion. Multiple bilateral pulmonary nodules and masses present. Malignancy likely. CARDIOVASCULAR: EKG shows atrial fibrillation. ASSESSMENT AND PLAN This is a 76-year-old admitted with shortness of breath. 1. Acute hypercapnic hypoxic respiratory failure, most likely from CHF and COPD. Pneumonia is a possibility. Also, she has severe amyloidosis and emphysema. Currently, patient is on BiPAP. Continue the IV Bumex, IV Solu-Medrol, and oxygen. 2. Sepsis. Rule out with likely pneumonia with (2) and tachycardia. I am going to give her Zosyn and do lactic acid and send sputum cultures. 3. COPD with exacerbation. Started on IV Solu-Medrol and DuoNeb. 4. Amyloidosis with hemoptysis. Pulmonary is on board. 5. History of atrial fibrillation, currently on Eliquis. If her hemoptysis persists, I am going to hold off on the Eliquis. 6. Hypertension, uncontrolled. Discussed with the daughter on the financial investment manager phone. Unit #: [id number] #: [id number] Patient: EFRAIN BLAIR,PEARL SALOME Dictated by Malcom Nichole/danielle TD: 12/05/2016 11:00 JOB #: [id number] HISTORY AND PHYSICAL Page 1 of 1 X Azul Fontaine MD X HISTORY AND PHYSICAL
--- NOTE | ~2016-12-04 | EKG ---
PATIENT: PEARL KEMP UNIT #: [id number] Ventricular Rate: 138 BPM Atrial Rate: 144 BPM QRS Duration: 132 ms Q-T Interval: 364 ms QTC Calculation(Bezet): 551 ms Calculated R [place]: 88 degrees Calculated T [place]: -52 degrees Diagnosis Line: Atrial fibrillation with rapid ventricular Diagnosis Line: response with premature ventricular or aberrantly Diagnosis Line: conducted complexes Diagnosis Line: Right bundle branch block Diagnosis Line: T wave abnormality, consider inferolateral Diagnosis Line: ischemia or digitalis effect Diagnosis Line: Abnormal ECG Diagnosis Line: When compared with ECG of 05-DEC-2016 00:49, Diagnosis Line: ST now depressed in Lateral leads Diagnosis Line: T wave inversion now evident in Lateral leads Diagnosis Line: Confirmed by DIEGO CARDONA MD ([id number]) on Diagnosis Line: 12/06/2016 12:50:16 PM INTERPRETING MD: DAMIEN
--- NOTE | ~2016-12-04 | EKG ---
PATIENT: PEARL KEMP UNIT #: [id number] Ventricular Rate: 138 BPM Atrial Rate: 144 BPM QRS Duration: 132 ms Q-T Interval: 364 ms QTC Calculation(Bezet): 551 ms Calculated R [place]: 88 degrees Calculated T [place]: -52 degrees Diagnosis Line: Atrial fibrillation with rapid ventricular Diagnosis Line: response with premature ventricular or aberrantly Diagnosis Line: conducted complexes Diagnosis Line: Right bundle branch block Diagnosis Line: T wave abnormality, consider inferolateral Diagnosis Line: ischemia or digitalis effect Diagnosis Line: Abnormal ECG Diagnosis Line: When compared with ECG of 05-DEC-2016 00:49, Diagnosis Line: ST now depressed in Lateral leads Diagnosis Line: T wave inversion now evident in Lateral leads Diagnosis Line: Confirmed by DIEGO CARDONA MD ([id number]) on Diagnosis Line: 12/08/2016 10:20:14 PM INTERPRETING MD: DAMIEN
[2016-12-04 23:11] LABS: ARTERIAL BLOOD GAS ALLEN TEST NORMAL; ARTERIAL BLOOD GAS ART SITE LEFT RADIAL; ARTERIAL BLOOD GAS CARBOXY HB 1.2 %sat (0.0-9.0); ARTERIAL BLOOD GAS HCO3 30.4 mmol/L; ARTERIAL BLOOD GAS MET HB 0.8 %sat (0.0-2.0); ARTERIAL BLOOD GAS PCO2 48.9 mmHg (35.0-45.0); ARTERIAL BLOOD GAS PO2 59.2 mmHg (80.0-100); ARTERIAL BLOOD GAS pH 7.401 (7.350-7.450); ARTERIAL DRAW? YES
[~2016-12-04 23:11] MED LIST: ACETAMINOPHEN PO; ADVAIR 100-501 EACH IH; ADVAIR 500-501 EACH INH; ADVAIR 5001 DISK W/2 IH; ALBUTEROL 0.5ML INH; ALBUTEROL17 GM INH; ALPHAGAN P10 ML OD; ALPHAGAN P5 ML OD; ASPIRIN EC81 M1 PO; ASPIRIN81 M1 PO; ASPIRIN81 M2 PO; ATROPINE SULFATE2 ML OD; AUGMENTIN875 MG; BAYER CHEWABLE81 MG PO; BENZONATATE PO; CARTIA XT240 MG PO; COMBIGAN EYE DRO5 ML OP; COMBIVENT MININEB INH; COMBIVENT U/D3 M1; COMBIVENT U/D3 ML INH; COMBIVENT14.7 GM INH; COREG6.25 MG PO; DILTIAZEM 24HR240 M2 PO; FUROSEMIDE40 MG PO; K-DUR20 ME1 PO; K-DUR20 ME2 PO; K-LOR HOSPITAL20 ME1 PO/SL; LASIX PO; LEVAQUIN750 M1 PO; LEVAQUIN750 MG PO; LISINOPRIL20 MG PO; LOPRESSOR PO; MOBIC15 MG PO; MORGIDOX100 MG PO; NORCO 5/325 TAB1 TAB; POTASSIUM CHLO10 ME1 PO; PRED MILD5 ML OD; PREDNISONE10 MG PO; PREDNISONE50 MG PO; PRILOSEC40 MG PO; PROAIR HFA8.5 GM PO; PROVENTIL INH0.5 ML HHN; ROBITUSSIN A-C S5 ML PO; SYMBICORT INH; TIMOPTIC 0.5% OP5 M2 OD; TIMOPTIC2.5 ML OD; TOPROL XL 50 MG50 MG PO; TYLENOL #3 PO; XALATAN OP; ZESTRIL10 MG PO; ZYLOPRIM; ZYLOPRIM100 MG PO; [UNRECOGNIZED DRUG - OTHER] PO
[2016-12-04 23:12] LABS: ARTERIAL BLD GAS O2 SATURATION 89.2 % (90.0-100.0)
[2016-12-05 00:20] LABS: ALBUMIN SERUM 3.4 g/dL (3.5-5.0); BILIRUBIN, DIRECT 0.2 mg/dL (0.0-0.2); BILIRUBIN,INDIRECT 0.8 mg/dL (0.0-0.9); BUN/CREATININE RATIO 27.77; CALCIUM SERUM 8.9 mg/dL (8.4-10.2); CREATININE SERUM 0.9 mg/dL (0.6-1.4); GLOM FILT RATE Estimated 61.3 mL/min (>60); POTASSIUM 3.9 mmol/L (3.5-5.1); PROTEIN TOTAL SERUM 7.7 g/dL (6.0-8.3)
[2016-12-05 00:28] LABS: BASOPHIL# 0.6 X10e3 (0-0.3); BASOPHIL% 3.1 % (0-2.5); EOSINOPHIL# 0.1 X10e3 (0-0.7); EOSINOPHIL% 0.5 % (0.0-7.0); HEMATOCRIT 37.2 % (35.0-45.0); HEMOGLOBIN 11.3 gm/dL (12.0-16.0); LYMPHOCYTE# 1.1 X10e3 (1.0-3.5); LYMPHOCYTE% 5.8 % (17.0-45.0); MEAN CELL VOLUME 84.7 FL (83-96); MEAN CORPUSCULAR HEMOGLOBIN 25.8 PG (28-34); MEAN CORPUSCULAR HGB CONC 30.4 g/dL (30-36); MEAN PLATELET VOLUME 9.8 FL (6.5-11.5); MONOCYTE% 5.1 % (3.0-12.0); NEUTROPHIL# 16.8 X10e3 (1.5-7.1); NEUTROPHIL% 85.5 % (40-75); PLATELET COUNT 194 X10e3 (140-420); RED CELL DISTRIBUTION WIDTH 18.2 % (11.0-15.5); WHITE BLOOD COUNT 19.7 X10e3 (4.0-10.5)
[2016-12-05 00:30] LABS: DIFF IND YES
[2016-12-05 00:37] LABS: ANISOCYTOSIS MOD; HYPOCHROMIA MOD; OVALOCYTES PRESENT; PLATELET ESTIMATE NORMAL (NORMAL)
[2016-12-05 00:51] LABS: POC - TROPONIN <0.05 ng/mL (<=0.05)
[2016-12-05 01:55] LABS: INR 1.1; PROTHROMBIN TIME (PATIENT) 11.9 SECONDS (9.6-11.5)
[2016-12-05] MEDS ORDERED: ELIQUIS2.5 MG PO (02:28)
[2016-12-05] MEDS ORDERED: METOPROLOL TAR25 MG PO (02:29)
[2016-12-05] MEDS ORDERED: BUMEX2 MG PO (02:31)
[2016-12-05] MEDS ORDERED: LIPITOR PO (02:34)
[2016-12-05] MEDS ORDERED: PROAIR RESPICL90 MCG INH (02:37)
[2016-12-05] MEDS ORDERED: ATROPINE 0.01%-10 ML OD (02:40)
[2016-12-05] MEDS ORDERED: PRED FORTE1 ML OD (02:41)
[2016-12-05] MEDS ORDERED: DIPHEDRYL12.5 MG/1 PO (02:42)
[2016-12-05] MEDS ORDERED: BRIMONIDINE TAR10 ML (02:43)
[2016-12-05] MEDS ORDERED: TIMOPTIC10 ML (02:43)
[2016-12-05 05:24] LABS: BASOPHIL% 0.3 % (0-2.5); DIFF IND NO; EOSINOPHIL% 0.2 % (0.0-7.0); HEMATOCRIT 36.6 % (35.0-45.0); HEMOGLOBIN 11.4 gm/dL (12.0-16.0); LYMPHOCYTE# 1.2 X10e3 (1.0-3.5); LYMPHOCYTE% 7.8 % (17.0-45.0); MEAN CELL VOLUME 84.6 FL (83-96); MEAN CORPUSCULAR HEMOGLOBIN 26.4 PG (28-34); MEAN CORPUSCULAR HGB CONC 31.1 g/dL (30-36); MEAN PLATELET VOLUME 9.9 FL (6.5-11.5); MONOCYTE# 0.9 X10e3 (0-1.0); MONOCYTE% 5.9 % (3.0-12.0); NEUTROPHIL# 12.8 X10e3 (1.5-7.1); NEUTROPHIL% 85.8 % (40-75); PLATELET COUNT 199 X10e3 (140-420); RED BLOOD COUNT 4.33 X10e (3.90-5.30); RED CELL DISTRIBUTION WIDTH 18.3 % (11.0-15.5); WHITE BLOOD COUNT 14.9 X10e3 (4.0-10.5)
[2016-12-05 05:55] LABS: BUN/CREATININE RATIO 26.66; CALCIUM SERUM 9.1 mg/dL (8.4-10.2); CREATININE SERUM 0.9 mg/dL (0.6-1.4); GLOM FILT RATE Estimated 61.3 mL/min (>60); POTASSIUM 4.3 mmol/L (3.5-5.1)
[2016-12-05 13:37] LABS: THYROID STIMULATING HORMONE 0.52 uIU/ml (0.34-5.60)
[2016-12-05 13:46] LABS: FREE THYROXIN (T4) 1.15 ng/dL (0.58-1.64)
[2016-12-05 14:47] LABS: INFLUENZA A NEG (NEG); INFLUENZA B NEG (NEG)
[2016-12-05 16:28] LABS: BASOPHIL% 0.3 % (0-2.5); EOSINOPHIL% 0.1 % (0.0-7.0); HEMATOCRIT 35.1 % (35.0-45.0); LYMPHOCYTE# 0.6 X10e3 (1.0-3.5); LYMPHOCYTE% 4.9 % (17.0-45.0); MEAN CELL VOLUME 83.3 FL (83-96); MEAN CORPUSCULAR HGB CONC 31.3 g/dL (30-36); MEAN PLATELET VOLUME 9.3 FL (6.5-11.5); MONOCYTE# 0.2 X10e3 (0-1.0); MONOCYTE% 1.4 % (3.0-12.0); NEUTROPHIL# 10.7 X10e3 (1.5-7.1); NEUTROPHIL% 93.3 % (40-75); PLATELET COUNT 196 X10e3 (140-420); RED BLOOD COUNT 4.21 X10e (3.90-5.30); RED CELL DISTRIBUTION WIDTH 17.9 % (11.0-15.5); WHITE BLOOD COUNT 11.5 X10e3 (4.0-10.5)
[2016-12-05 16:31] LABS: DIFF IND NO
[2016-12-05 19:51] LABS: ARTERIAL BLD GAS O2 SATURATION 77.1 % (90.0-100.0); ARTERIAL BLOOD GAS CARBOXY HB 0.9 %sat (0.0-9.0); ARTERIAL BLOOD GAS HCO3 31.8 mmol/L; ARTERIAL BLOOD GAS MET HB 0.4 %sat (0.0-2.0); ARTERIAL BLOOD GAS PCO2 46.8 mmHg (35.0-45.0); ARTERIAL BLOOD GAS pH 7.441 (7.350-7.450)
[2016-12-05 19:52] LABS: ARTERIAL BLOOD GAS ALLEN TEST NORMAL; ARTERIAL BLOOD GAS ART SITE LEFT RADIAL; ARTERIAL BLOOD GAS PO2 43.3 mmHg (80.0-100); ARTERIAL DRAW? YES
[2016-12-05 20:42] LABS: BASOPHIL% 0.2 % (0-2.5); HEMATOCRIT 36.7 % (35.0-45.0); HEMOGLOBIN 11.4 gm/dL (12.0-16.0); LYMPHOCYTE# 0.7 X10e3 (1.0-3.5); LYMPHOCYTE% 6.8 % (17.0-45.0); MEAN CORPUSCULAR HEMOGLOBIN 25.9 PG (28-34); MEAN CORPUSCULAR HGB CONC 31.2 g/dL (30-36); MEAN PLATELET VOLUME 9.1 FL (6.5-11.5); MONOCYTE# 0.1 X10e3 (0-1.0); MONOCYTE% 0.9 % (3.0-12.0); NEUTROPHIL# 9.2 X10e3 (1.5-7.1); NEUTROPHIL% 92.1 % (40-75); PLATELET COUNT 203 X10e3 (140-420); RED BLOOD COUNT 4.43 X10e (3.90-5.30); RED CELL DISTRIBUTION WIDTH 18.3 % (11.0-15.5)
[2016-12-05 20:43] LABS: DIFF IND NO
[2016-12-05 22:05] LABS: ARTERIAL BLD GAS O2 SATURATION 86.7 % (90.0-100.0); ARTERIAL BLOOD GAS CARBOXY HB 0.9 %sat (0.0-9.0); ARTERIAL BLOOD GAS MET HB 0.5 %sat (0.0-2.0); ARTERIAL BLOOD GAS pH 7.359 (7.350-7.450)
[2016-12-05 22:06] LABS: ARTERIAL BLOOD GAS ALLEN TEST NORMAL; ARTERIAL BLOOD GAS ART SITE LEFT RADIAL; ARTERIAL BLOOD GAS DELIVERY VENT; ARTERIAL BLOOD GAS PCO2 53.2 mmHg (35.0-45.0); ARTERIAL BLOOD GAS PO2 63.9 mmHg (80.0-100); ARTERIAL BLOOD GAS VENT MODE A/C; ARTERIAL DRAW? YES
[2016-12-06 04:23] LABS: ARTERIAL BLD GAS O2 SATURATION 97.5 % (90.0-100.0); ARTERIAL BLOOD GAS CARBOXY HB 0.6 %sat (0.0-9.0); ARTERIAL BLOOD GAS HCO3 28.7 mmol/L; ARTERIAL BLOOD GAS PCO2 47.2 mmHg (35.0-45.0); ARTERIAL BLOOD GAS PO2 91.7 mmHg (80.0-100); ARTERIAL BLOOD GAS pH 7.393 (7.350-7.450)
[2016-12-06 04:29] LABS: ARTERIAL BLOOD GAS ALLEN TEST NORMAL; ARTERIAL BLOOD GAS ART SITE RIGHT RADIAL; ARTERIAL BLOOD GAS DELIVERY VENT; ARTERIAL BLOOD GAS VENT MODE A/C; ARTERIAL DRAW? YES
[2016-12-06 06:04] LABS: BASOPHIL% 0.1 % (0-2.5); HEMATOCRIT 36.2 % (35.0-45.0); HEMOGLOBIN 11.2 gm/dL (12.0-16.0); LYMPHOCYTE# 0.8 X10e3 (1.0-3.5); LYMPHOCYTE% 5.3 % (17.0-45.0); MEAN CELL VOLUME 83.4 FL (83-96); MEAN CORPUSCULAR HEMOGLOBIN 25.7 PG (28-34); MEAN CORPUSCULAR HGB CONC 30.8 g/dL (30-36); MEAN PLATELET VOLUME 9.6 FL (6.5-11.5); MONOCYTE# 0.4 X10e3 (0-1.0); MONOCYTE% 2.6 % (3.0-12.0); NEUTROPHIL# 13.4 X10e3 (1.5-7.1); PLATELET COUNT 243 X10e3 (140-420); RED BLOOD COUNT 4.34 X10e (3.90-5.30); RED CELL DISTRIBUTION WIDTH 17.8 % (11.0-15.5); WHITE BLOOD COUNT 14.6 X10e3 (4.0-10.5)
[2016-12-06 06:11] LABS: DIFF IND NO
[2016-12-06 06:54] LABS: BILIRUBIN,TOTAL 1.3 mg/dL (0.2-2.0); CALCIUM SERUM 8.9 mg/dL (8.4-10.2); GLOM FILT RATE Estimated 53.9 mL/min (>60); MAGNESIUM 1.7 mg/dL (1.6-3.0); PHOSPHOROUS 3.4 mg/dL (2.5-4.6); POTASSIUM 3.8 mmol/L (3.5-5.1); PROTEIN TOTAL SERUM 7.8 g/dL (6.0-8.3)
[2016-12-06 08:17] LABS: HEMATOCRIT 36.1 % (35.0-45.0); HEMOGLOBIN 11.1 gm/dL (12.0-16.0)
[2016-12-06 15:37] LABS: HEMATOCRIT 35.1 % (35.0-45.0); HEMOGLOBIN 10.7 gm/dL (12.0-16.0)
[2016-12-06 23:47] LABS: BASOPHIL# 0.1 X10e3 (0-0.3); BASOPHIL% 0.3 % (0-2.5); DIFF IND YES; HEMATOCRIT 35.3 % (35.0-45.0); HEMOGLOBIN 10.9 gm/dL (12.0-16.0); LYMPHOCYTE# 0.6 X10e3 (1.0-3.5); LYMPHOCYTE% 3.2 % (17.0-45.0); MEAN CELL VOLUME 83.1 FL (83-96); MEAN CORPUSCULAR HEMOGLOBIN 25.6 PG (28-34); MEAN CORPUSCULAR HGB CONC 30.8 g/dL (30-36); MEAN PLATELET VOLUME 9.3 FL (6.5-11.5); MONOCYTE# 0.7 X10e3 (0-1.0); MONOCYTE% 3.6 % (3.0-12.0); NEUTROPHIL# 18.2 X10e3 (1.5-7.1); NEUTROPHIL% 92.9 % (40-75); PLATELET COUNT 217 X10e3 (140-420); RED BLOOD COUNT 4.24 X10e (3.90-5.30); WHITE BLOOD COUNT 19.5 X10e3 (4.0-10.5)
[2016-12-06 23:59] LABS: ANISOCYTOSIS MOD; OVALOCYTES PRESENT; PLATELET ESTIMATE NORMAL (NORMAL); STOMATOCYTE PRESENT; TARGET CELLS SL
[2016-12-07 04:01] LABS: ARTERIAL BLD GAS O2 SATURATION 99.9 % (90.0-100.0); ARTERIAL BLOOD GAS CARBOXY HB 1.1 %sat (0.0-9.0); ARTERIAL BLOOD GAS HCO3 33.8 mmol/L; ARTERIAL BLOOD GAS PCO2 48.2 mmHg (35.0-45.0); ARTERIAL BLOOD GAS pH 7.454 (7.350-7.450)
[2016-12-07 04:08] LABS: ARTERIAL BLOOD GAS ALLEN TEST NORMAL; ARTERIAL BLOOD GAS ART SITE LEFT RADIAL; ARTERIAL BLOOD GAS DELIVERY VENT; ARTERIAL BLOOD GAS VENT MODE AC; ARTERIAL DRAW? YES
[2016-12-07 05:31] LABS: BASOPHIL% 0.1 % (0-2.5); HEMATOCRIT 35.4 % (35.0-45.0); HEMOGLOBIN 10.8 gm/dL (12.0-16.0); LYMPHOCYTE# 0.6 X10e3 (1.0-3.5); LYMPHOCYTE% 3.5 % (17.0-45.0); MEAN CELL VOLUME 83.6 FL (83-96); MEAN CORPUSCULAR HEMOGLOBIN 25.5 PG (28-34); MEAN CORPUSCULAR HGB CONC 30.4 g/dL (30-36); MEAN PLATELET VOLUME 9.6 FL (6.5-11.5); MONOCYTE# 0.7 X10e3 (0-1.0); MONOCYTE% 3.9 % (3.0-12.0); NEUTROPHIL# 16.7 X10e3 (1.5-7.1); NEUTROPHIL% 92.5 % (40-75); PLATELET COUNT 215 X10e3 (140-420); RED BLOOD COUNT 4.24 X10e (3.90-5.30); RED CELL DISTRIBUTION WIDTH 18.3 % (11.0-15.5)
[2016-12-07 05:33] LABS: DIFF IND NO
[2016-12-07 06:38] LABS: BILIRUBIN,TOTAL 1.5 mg/dL (0.2-2.0); CALCIUM SERUM 9.3 mg/dL (8.4-10.2); GLOM FILT RATE Estimated 53.9 mL/min (>60); MAGNESIUM 2.1 mg/dL (1.6-3.0); PHOSPHOROUS 2.6 mg/dL (2.5-4.6); POTASSIUM 3.7 mmol/L (3.5-5.1); PROTEIN TOTAL SERUM 7.3 g/dL (6.0-8.3)
[2016-12-07 12:16] LABS: HEMATOCRIT 35.7 % (35.0-45.0)
[2016-12-07 20:49] LABS: HEMATOCRIT 35.5 % (35.0-45.0); HEMOGLOBIN 10.9 gm/dL (12.0-16.0)
[2016-12-08 04:34] LABS: ARTERIAL BLD GAS O2 SATURATION 94.4 % (90.0-100.0); ARTERIAL BLOOD GAS CARBOXY HB 1.2 %sat (0.0-9.0); ARTERIAL BLOOD GAS HCO3 36.4 mmol/L; ARTERIAL BLOOD GAS MET HB 0.7 %sat (0.0-2.0); ARTERIAL BLOOD GAS pH 7.526 (7.350-7.450)
[2016-12-08 04:36] LABS: ARTERIAL BLOOD GAS ART SITE LEFT BRACHIAL; ARTERIAL BLOOD GAS PO2 71.5 mmHg (80.0-100); ARTERIAL DRAW? YES
[2016-12-08 04:37] LABS: ARTERIAL BLOOD GAS DELIVERY VENT; ARTERIAL BLOOD GAS VENT MODE AC
[2016-12-08 05:45] LABS: BASOPHIL% 0.1 % (0-2.5); HEMATOCRIT 35.7 % (35.0-45.0); LYMPHOCYTE# 0.7 X10e3 (1.0-3.5); MEAN CELL VOLUME 83.9 FL (83-96); MEAN CORPUSCULAR HEMOGLOBIN 25.8 PG (28-34); MEAN CORPUSCULAR HGB CONC 30.8 g/dL (30-36); MEAN PLATELET VOLUME 9.7 FL (6.5-11.5); MONOCYTE% 6.2 % (3.0-12.0); NEUTROPHIL# 15.2 X10e3 (1.5-7.1); NEUTROPHIL% 89.7 % (40-75); PLATELET COUNT 201 X10e3 (140-420); RED BLOOD COUNT 4.26 X10e (3.90-5.30); RED CELL DISTRIBUTION WIDTH 18.1 % (11.0-15.5)
[2016-12-08 05:47] LABS: DIFF IND NO
[2016-12-08 06:29] LABS: ALBUMIN SERUM 2.9 g/dL (3.5-5.0); BILIRUBIN,TOTAL 1.1 mg/dL (0.2-2.0); BUN/CREATININE RATIO 34.28; CALCIUM SERUM 9.1 mg/dL (8.4-10.2); CREATININE SERUM 0.7 mg/dL (0.6-1.4); POTASSIUM 3.2 mmol/L (3.5-5.1); PROTEIN TOTAL SERUM 7.3 g/dL (6.0-8.3)
[2016-12-09 04:07] LABS: ARTERIAL BLD GAS O2 SATURATION 92.4 % (90.0-100.0); ARTERIAL BLOOD GAS MET HB 0.5 %sat (0.0-2.0); ARTERIAL BLOOD GAS PCO2 47.1 mmHg (35.0-45.0); ARTERIAL BLOOD GAS pH 7.526 (7.350-7.450)
[2016-12-09 04:12] LABS: ARTERIAL BLOOD GAS ALLEN TEST NORMAL; ARTERIAL BLOOD GAS ART SITE LEFT RADIAL; ARTERIAL BLOOD GAS DELIVERY VENT; ARTERIAL BLOOD GAS PO2 62.7 mmHg (80.0-100); ARTERIAL BLOOD GAS VENT MODE AC; ARTERIAL DRAW? YES
[2016-12-09 05:39] LABS: BASOPHIL% 0.1 % (0-2.5); HEMATOCRIT 36.5 % (35.0-45.0); HEMOGLOBIN 11.2 gm/dL (12.0-16.0); LYMPHOCYTE# 0.6 X10e3 (1.0-3.5); LYMPHOCYTE% 3.8 % (17.0-45.0); MEAN CELL VOLUME 84.5 FL (83-96); MEAN CORPUSCULAR HEMOGLOBIN 25.9 PG (28-34); MEAN CORPUSCULAR HGB CONC 30.7 g/dL (30-36); MEAN PLATELET VOLUME 9.8 FL (6.5-11.5); MONOCYTE# 0.8 X10e3 (0-1.0); MONOCYTE% 5.5 % (3.0-12.0); NEUTROPHIL# 13.2 X10e3 (1.5-7.1); NEUTROPHIL% 90.6 % (40-75); PLATELET COUNT 195 X10e3 (140-420); RED BLOOD COUNT 4.32 X10e (3.90-5.30); RED CELL DISTRIBUTION WIDTH 18.3 % (11.0-15.5); WHITE BLOOD COUNT 14.6 X10e3 (4.0-10.5)
[2016-12-09 05:45] LABS: DIFF IND NO
[2016-12-09 06:07] LABS: BUN/CREATININE RATIO 37.5; CALCIUM SERUM 9.3 mg/dL (8.4-10.2); CREATININE SERUM 0.8 mg/dL (0.6-1.4); GLOM FILT RATE Estimated 70.7 mL/min (>60); MAGNESIUM 2.3 mg/dL (1.6-3.0); POTASSIUM 4.3 mmol/L (3.5-5.1)
[2016-12-10 04:59] LABS: ARTERIAL BLOOD GAS CARBOXY HB 1.2 %sat (0.0-9.0); ARTERIAL BLOOD GAS HCO3 44.1 mmol/L; ARTERIAL BLOOD GAS MET HB 0.6 %sat (0.0-2.0); ARTERIAL BLOOD GAS PCO2 44.2 mmHg (35.0-45.0)
[2016-12-10 06:08] LABS: BASOPHIL# 0.1 X10e3 (0-0.3); BASOPHIL% 0.3 % (0-2.5); HEMATOCRIT 41.7 % (35.0-45.0); HEMOGLOBIN 12.8 gm/dL (12.0-16.0); LYMPHOCYTE# 0.5 X10e3 (1.0-3.5); LYMPHOCYTE% 2.4 % (17.0-45.0); MEAN CELL VOLUME 84.8 FL (83-96); MEAN CORPUSCULAR HGB CONC 30.7 g/dL (30-36); MEAN PLATELET VOLUME 9.9 FL (6.5-11.5); MONOCYTE# 2.3 X10e3 (0-1.0); MONOCYTE% 10.7 % (3.0-12.0); NEUTROPHIL# 18.9 X10e3 (1.5-7.1); NEUTROPHIL% 86.6 % (40-75); PLATELET COUNT 203 X10e3 (140-420); RED BLOOD COUNT 4.92 X10e (3.90-5.30); RED CELL DISTRIBUTION WIDTH 18.7 % (11.0-15.5); WHITE BLOOD COUNT 21.8 X10e3 (4.0-10.5)
[2016-12-10 06:10] LABS: DIFF IND YES
[2016-12-10 06:32] LABS: ANISOCYTOSIS SL; PLATELET ESTIMATE NORMAL (NORMAL)
[2016-12-10 06:50] LABS: BUN/CREATININE RATIO 38.18; CALCIUM SERUM 9.6 mg/dL (8.4-10.2); CREATININE SERUM 1.1 mg/dL (0.6-1.4); GLOM FILT RATE Estimated 48.1 mL/min (>60); POTASSIUM 4.1 mmol/L (3.5-5.1)
[2016-12-10 07:35] LABS: ARTERIAL BLOOD GAS PO2 58.5 mmHg (80.0-100); ARTERIAL BLOOD GAS pH 7.607 (7.350-7.450); ARTERIAL DRAW? YES
[2016-12-10 07:36] LABS: ARTERIAL BLOOD GAS ART SITE LEFT RADIAL; ARTERIAL BLOOD GAS DELIVERY VENT; ARTERIAL BLOOD GAS VENT MODE A/C
== END 2016-12-10 13:45 | disposition expired | DRG 870 ==
LOC: CED 23:11 → CEDOF 12-05 00:55 → CICCU3 12-05 03:55
PROVIDERS: Emergency Medicine; Internal Medicine; Internal Medicine Cardiovascular Disease
PROC: B246YZZ Ultrasonography of Right and Left Heart using Other Contrast (ICD-10-PCS; principal; 2016-12-05)
PROC: 5A1955Z Respiratory Ventilation, Greater than 96 Consecutive Hours (ICD-10-PCS; 2016-12-05)
PROC: 0BH17EZ Insertion of Endotracheal Airway into Trachea, Via Natural or Artificial Opening (ICD-10-PCS; 2016-12-05)
PROC: 0DH67UZ Insertion of Feeding Device into Stomach, Via Natural or Artificial Opening (ICD-10-PCS; 2016-12-07)
PROC: 0BCB8ZZ Extirpation of Matter from Left Lower Lobe Bronchus, Via Natural or Artificial Opening Endoscopic (ICD-10-PCS; 2016-12-07)
PROC: 0BC78ZZ Extirpation of Matter from Left Main Bronchus, Via Natural or Artificial Opening Endoscopic (ICD-10-PCS; 2016-12-07)
PROC: 0BC88ZZ Extirpation of Matter from Left Upper Lobe Bronchus, Via Natural or Artificial Opening Endoscopic (ICD-10-PCS; 2016-12-07)
PROC: 0B978ZX Drainage of Left Main Bronchus, Via Natural or Artificial Opening Endoscopic, Diagnostic (ICD-10-PCS; 2016-12-07)
PROC: 0B988ZX Drainage of Left Upper Lobe Bronchus, Via Natural or Artificial Opening Endoscopic, Diagnostic (ICD-10-PCS; 2016-12-07)
PROC: 0B9B8ZX Drainage of Left Lower Lobe Bronchus, Via Natural or Artificial Opening Endoscopic, Diagnostic (ICD-10-PCS; 2016-12-07)
PROC: 05HM33Z Insertion of Infusion Device into Right Internal Jugular Vein, Percutaneous Approach (ICD-10-PCS; 2016-12-07)
DX: A41.51 Sepsis due to Escherichia coli [E. coli] (principal); R65.21 Severe sepsis with septic shock; J96.21 Acute and chronic respiratory failure with hypoxia; J15.6 Pneumonia due to other Gram-negative bacteria; I50.33 Acute on chronic diastolic (congestive) heart failure; I42.8 Other cardiomyopathies; E85.4 Organ-limited amyloidosis; T17.590A Other foreign object in bronchus causing asphyxiation, initial encounter; I11.0 Hypertensive heart disease with heart failure; J96.22 Acute and chronic respiratory failure with hypercapnia; J44.0 Chronic obstructive pulmonary disease with (acute) lower respiratory infection; R04.2 Hemoptysis; J44.1 Chronic obstructive pulmonary disease with (acute) exacerbation; J99 Respiratory disorders in diseases classified elsewhere; I48.0 Paroxysmal atrial fibrillation; Z79.01 Long term (current) use of anticoagulants; Z79.82 Long term (current) use of aspirin; I35.1 Nonrheumatic aortic (valve) insufficiency; R91.1 Solitary pulmonary nodule; H54.41 Blindness, right eye, normal vision left eye; Z87.891 Personal history of nicotine dependence; M10.9 Gout, unspecified; Z51.5 Encounter for palliative care; Z99.81 Dependence on supplemental oxygen; R00.0 Tachycardia, unspecified; Z66 Do not resuscitate; Z90.710 Acquired absence of both cervix and uterus
CPT/HCPCS: 36600; 51702; 71010; 71250; 74000; 80048; 80053; 80076; 82308; 82553; 82803; 83605; 83735; 83880; 84100; 84439; 84443; 84484; 85014; 85018; 85025; 85610; 85730; 87040; 87070; 87077; 87186; 87205; 87804; 88108; 88305; 93005; 93306; 94002; 94003; 94640; 94660; 94760; 96374; 99291; J0171; J0282; J1160; J1940; J2185; J2250; J2270; J2370; J2543; J2920; J2930; J3010; J3370; J3475; J3490